=== PATIENT | male | born 1955 | race Caucasian/White ===

== ENCOUNTER → 2017-03-31 | Outpatient (CLI) | payer BC, MEDICARE | LOC: SUN.DIA 11:32 | DX: E11.9 Type 2 diabetes mellitus without complications (principal); I10 Essential (primary) hypertension; E66.9 Obesity, unspecified; Z68.38 Body mass index [BMI] 38.0-38.9, adult; Z71.3 Dietary counseling and surveillance | CPT/HCPCS: G0108 ==

== ENCOUNTER → 2019-02-22 | Outpatient (CLI) | payer MEDICARE, BC | LOC: DIA.ED 08:52 | DX: E11.9 Type 2 diabetes mellitus without complications (principal); E78.5 Hyperlipidemia, unspecified; I10 Essential (primary) hypertension; E66.9 Obesity, unspecified; Z79.4 Long term (current) use of insulin | CPT/HCPCS: G0108 ==

== ENCOUNTER → 2019-03-03 | Outpatient (CLI) | payer MEDICARE, BC | LOC: DIA.ED 13:51 | DX: E11.9 Type 2 diabetes mellitus without complications (principal); E78.5 Hyperlipidemia, unspecified; I10 Essential (primary) hypertension; E66.9 Obesity, unspecified; Z79.4 Long term (current) use of insulin | CPT/HCPCS: G0108 ==

== ENCOUNTER → 2019-03-30 | Outpatient (CLI) | payer MEDICARE, BC | LOC: DIA.ED 14:38 | DX: E11.9 Type 2 diabetes mellitus without complications (principal); E78.5 Hyperlipidemia, unspecified; I10 Essential (primary) hypertension; E66.9 Obesity, unspecified; Z79.4 Long term (current) use of insulin | CPT/HCPCS: G0108 ==

== ENCOUNTER 2019-04-05 16:37 | Inpatient (IN) | payer MEDICARE, BC ==
[2019-04-05] VITALS (53 sets, daily range): BP systolic 188–192; BP diastolic 95–118; PULSE 78–93; TEMP 98.3; O2SAT 90–97
[~2019-04-05] VITALS: Ht 165.1 cm; Wt 97.2 kg
[2019-04-05] MEDS ORDERED: CELEXA 20MG20 MG/TAB PO (17:26)
[2019-04-05] MEDS ORDERED: VOLTAREN 75 DR75 MG PO (17:27)
[2019-04-05] MEDS ORDERED: PLAVIX 75MG TAB75 MG PO (17:27)
[2019-04-05] MEDS ORDERED: LEVEMIR100 U/ML SQ (17:29)
[2019-04-05] MEDS ORDERED: PRINZIDE 25 MG-1 TAB PO (17:31)
[2019-04-05] MEDS ORDERED: GLUCOPHAGE1000 MG PO (17:32)
[2019-04-05] MEDS ORDERED: PRAVACHOL 40MG40 MG PO (17:33)
[2019-04-05 17:46] LABS: BASO % 0.3 % (0.0-2.0); EOS # 0.1 (0.0-0.7); EOS % 0.9 % (0-4.0); GRAN # 6.6 (1.4-6.5); GRAN % 72.1 % (42.2-75.2); HEMATOCRIT 45.4 % (42.0-52.0); HEMOGLOBIN 15.4 g/dl (13.5-18.0); LYMPH # 1.9 (1.2-3.4); LYMPH % 20.7 % (20.0-51.0); MEAN CELL VOLUME 83 fl (80.0-100.0); MEAN CORPUSCULAR HEMOGLOBIN 28 pg (27.0-31.0); MEAN CORPUSCULAR HGB CONC 34 g/dl (33.0-37.0); MEAN PLATELET VOLUME 11.5 fl (7.4-10.4); MONO # 0.5 (0.1-0.6); MONO % 5.6 % (1.7-9.3); PLATELET COUNT 300 K/mm3 (130-400); RED BLOOD COUNT 5.48 M/mm3 (4.20-5.60); REDCELL DISTRIBUTION WIDTH-CV 13.4 % (11.5-14.5)
[2019-04-05 17:59] LABS: ALANINE AMINOTRANSFERASE 78 U/L (21-72); ALBUMIN 4.4 gm/dL (3.5-5.0); ALKALINE PHOSPHATASE 88 U/L (50-136); ANION GAP 11 mmol/L (7-16); AST,SGOT 52 U/L (15-37); BILIRUBIN,TOTAL 0.4 mg/dL (0.0-1.0); BLOOD UREA NITROGEN 12 mg/dL (9-20); C-REACTIVE PROTEIN 0.7 mg/dL (0.0-0.9); CALCIUM 8.9 mg/dL (8.4-10.2); CARBON DIOXIDE 28 mmol/L (22-30); CHLORIDE 100 mmol/L (98-107); CREATININE, serum 0.77 (0.66-1.25); POTASSIUM 3.7 mmol/L (3.4-5.0); SODIUM 139 mmol/L (137-145); TOTAL PROTEIN 7.3 gm/dL (6.4-8.2)
[2019-04-05 18:10] LABS: GLUCOSE 423 mg/dL (74-106); TROPONIN-I < 0.012 ng/mL (0.000-0.035)
[2019-04-05 19:09] LABS: COLLECTION METHOD CLEAN CATCH
[2019-04-05 19:15] LABS: MUCOUS Present /lpf; PH 5 (5-8); SQUAMOUS EPITHELIAL None Seen /hpf; URINE APPEARANCE Clear; URINE BACTERIA None Seen /hpf; URINE BILIRUBIN Negative (NEGATIVE); URINE BLOOD 1+ (NEGATIVE); URINE COLOR Yellow; URINE GLUCOSE 3+ (NEGATIVE); URINE KETONE Trace (NEGATIVE); URINE LEUKOCYTE ESTERASE Negative (NEGATIVE); URINE NITRATE Negative (NEGATIVE); URINE PROTEIN(semi-quant) 1+ (NEGATIVE); URINE RBC 0-2 /hpf; URINE UROBILINOGEN Negative (NEGATIVE)
[2019-04-05] MEDS ORDERED: NORVASC 5MG5 MG/TAB PO (20:20)
[2019-04-06] VITALS (367 sets, daily range): BP systolic 148–178; BP diastolic 71–110; PULSE 74–87; TEMP 98.4–99; O2SAT 91–98
--- NOTE | 2019-04-06 01:28 | NUR ---
2149 - RECEIVED REPORT FROM CHARITY HATCH. 2223 - PT ARRIVED IN UNIT VIA WHEELCHAIR, ABLE TO TRANSFER SELF TO BED WITH STANDBY ASSIST. PT AMBULATED TO THE HALLWAY WELL WITH MORRIS HOLCOMB. PT DID WELL. PT ALERT AND ORIENTED X 4, ON ROOM AIR, DENIES ANY PAIN OR SOB. PT ORIENTED TO ROOM, USE OF CALL LIGHT AND HOSPITAL POLICY, PT VERBALIZED UNDERSTANDING.
--- NOTE | 2019-04-06 01:31 | NUR ---
PT'S EMERGENCY CONTACT IS HIS BROTHER OBDULIA UNDERWOOD, PT DOES NOT KNOW HIS NUMBER HE JUST CHANGED HIS PHONE. PT WILL PROVIDE NUMBER WHEN BROTHER VISITS.
[2019-04-06 05:26] LABS: BASO % 0.3 % (0.0-2.0); EOS # 0.1 (0.0-0.7); EOS % 0.8 % (0-4.0); GRAN % 67.3 % (42.2-75.2); HEMATOCRIT 43.3 % (42.0-52.0); HEMOGLOBIN 14.4 g/dl (13.5-18.0); LYMPH # 2.1 (1.2-3.4); LYMPH % 23.9 % (20.0-51.0); MEAN CELL VOLUME 84 fl (80.0-100.0); MEAN CORPUSCULAR HEMOGLOBIN 28 pg (27.0-31.0); MEAN CORPUSCULAR HGB CONC 33 g/dl (33.0-37.0); MONO # 0.7 (0.1-0.6); MONO % 7.5 % (1.7-9.3); PLATELET COUNT 278 K/mm3 (130-400); RED BLOOD COUNT 5.15 M/mm3 (4.20-5.60)
[2019-04-06 05:47] LABS: ALBUMIN 3.9 gm/dL (3.5-5.0); BILIRUBIN,TOTAL 0.4 mg/dL (0.0-1.0); CALCIUM 8.2 mg/dL (8.4-10.2); CHOLESTEROL RISK RATIO 8.4; CREATININE, serum 0.75 (0.66-1.25); POTASSIUM 3.1 mmol/L (3.4-5.0); TOTAL PROTEIN 6.7 gm/dL (6.4-8.2)
--- NOTE | 2019-04-06 07:00 | NUR ---
BEDSIDE REPORT RECEIVED FROM CHARITY CLEMONS. PATIENT SLEEPS BETWEEN DISTURBANCES. NO NEEDS VOICED AT THIS TIME. CARE TAKEN OVER
--- NOTE | 2019-04-06 10:28 | NUR ---
Initial visit; Patient thanked Lead Programmer for looking in on him and offering God's blessings.
--- NOTE | 2019-04-06 11:50 | NUR ---
PATIENT WORKS WITH PT AT THIS TIME
--- NOTE | 2019-04-06 12:00 | NUR ---
DR. BAKER IN TO SEE PATIENT AT THIS TIME
--- NOTE | 2019-04-06 15:25 | NUR ---
DOOR ATTENDANT met with the patient to discuss a discharge plan. The patient lives in [place] and reports his brother Jaime lives with him on and off. The patient has a CPAP and [facility]. The patient's PCP is Dr. Joss Infante and [place] [facility] [place]. The patient does not have advanced directives in the EMR. Patient was not interested in a DPOA-HC form but stated his brother is his emergency contact. The patient plans to return home upon discharge with his brother Jaime or patient's son providing transportation. There are no additional needs at this time.
--- NOTE | 2019-04-06 16:00 | NUR ---
PATIENT VERY IMPULSIVE THROUGHOUT THE DAY. BED ALARM AND CHAIR ALARMS IMPLEMENTED FOR HIS SAFETY. HE IS ENCOURAGED TO USE CALL LIGHT WHEN HE NEEDS ANY THING AT ALL. HE CONTINUES TO BE IMPULSIVE AND NOT USE CALL LIGHT. CHAIR ALARM GOES OFF FREQUENTLY.
--- NOTE | 2019-04-06 17:30 | NUR ---
DR. PAULA HERE TO SEE PATIENT
[2019-04-06] MEDS ORDERED: GLUCOTROL XL10 MG PO (18:02)
[2019-04-06] MEDS ORDERED: JANUVIA 100MG100 MG PO (18:03)
--- NOTE | 2019-04-06 19:30 | NUR ---
REPORT GIVEN TO CHARITY MANCILLA ON MEDICAL FLOOR. PATIENT TAKEN UP TO ROOM 355.
--- NOTE | 2019-04-06 19:45 | NUR ---
Transferred from ICU to medical bed 355 at this time- alert/pleasant, oriented to place, month/time-- does not follow directions in regards to using call light for assistance up to bathroom- bed alarm on-reminded need to call for assistance - will be NPO after MN for renal U/S tomorrow, INT to left hand
[2019-04-07 04:17] VITALS: BP 150/67; PULSE 84; TEMP 99
--- NOTE | 2019-04-07 06:00 | NUR ---
Up to bathroom with assist- states is stiff this morning, moving slow- continues to not use the call light- needs reminders, gait is somewhat unsteady, Fall Risk- bed alarm on
[2019-04-07 07:22] VITALS: BP 161/99; PULSE 85; TEMP 98.7
[2019-04-07 07:39] LABS: BASO % 0.4 % (0.0-2.0); EOS # 0.1 (0.0-0.7); EOS % 0.8 % (0-4.0); GRAN # 5.5 (1.4-6.5); GRAN % 64.4 % (42.2-75.2); HEMATOCRIT 46.8 % (42.0-52.0); HEMOGLOBIN 15.2 g/dl (13.5-18.0); LYMPH # 2.3 (1.2-3.4); LYMPH % 26.4 % (20.0-51.0); MEAN CELL VOLUME 85 fl (80.0-100.0); MEAN CORPUSCULAR HEMOGLOBIN 28 pg (27.0-31.0); MEAN CORPUSCULAR HGB CONC 33 g/dl (33.0-37.0); MEAN PLATELET VOLUME 11.5 fl (7.4-10.4); MONO # 0.7 (0.1-0.6); MONO % 7.8 % (1.7-9.3); PLATELET COUNT 303 K/mm3 (130-400); REDCELL DISTRIBUTION WIDTH-CV 14.3 % (11.5-14.5)
[2019-04-07 07:46] LABS: CALCIUM 8.9 mg/dL (8.4-10.2); CREATININE, serum 0.81 (0.66-1.25); POTASSIUM 3.4 mmol/L (3.4-5.0)
[2019-04-07 10:39] VITALS: BP 133/99; PULSE 86; TEMP 98.2
[2019-04-07 10:51] VITALS: BP 102/53; PULSE 99; TEMP 98.1
--- NOTE | 2019-04-07 11:16 | NUR ---
Pt assessment completed and charted. Pt is alert and hard to assess orientation. When asked questions, patient answers jokingly and then later states "oh do you want honest answers?" Pt appears to make quite a few jokes and inappropriate comments. Denies pain, dizziness, SOB. Walked with therapy w/ gait belt and steady gait. Pt still on fall precautions, bed alarm and chair alarm on. Pt instructed to use call light for assistance, has needed multiple reminders. States he can "get around on his own". LH INT IV flushes with no concern. Pt up to recliner after working with therapy. Sutures to chin are CDI. No other concerns voiced at this time. Call light within reach.
--- NOTE | 2019-04-07 13:19 | NUR ---
SW met with patient and family to discuss discharge recommendations. Doctor would like patient to have home health services for medication management. Patient and family are agreeable. SW provided medicare.gov resource list. Patient chose [facility]. YANI contacted Pee from [facility]. Pee reports they can provide medication management. YNAI faxed clinical info and discharge orders to [facility].
--- NOTE | 2019-04-07 13:30 | NUR ---
Pt discharge instructions discussed and reviewed with pt. All questions answered. INT IV DC'd with catheter tip intact and no complications. No other concerns voiced at this time. Pt assisted in getting ready to leave, escorted out via WC by aide.
== END 2019-04-07 13:30 | disposition home health service (06) | DRG 305 ==
LOC: COL.ER 16:37 → ICU 20:33 → MEDICAL 04-06 19:35
PROVIDERS: Emergency Medicine; Nurse Practitioner Family; Physician Assistant; ADMIT Family Medicine
PROC: 0HQ1XZZ Repair Face Skin, External Approach (ICD-10-PCS; principal; 2019-04-05)
DX: I16.0 Hypertensive urgency (principal); I10 Essential (primary) hypertension; R27.0 Ataxia, unspecified; W18.30XA Fall on same level, unspecified, initial encounter; Y92.008 Other place in unspecified non-institutional (private) residence as the place of occurrence of the external cause; E87.6 Hypokalemia; E11.65 Type 2 diabetes mellitus with hyperglycemia; S01.81XA Laceration without foreign body of other part of head, initial encounter; E66.9 Obesity, unspecified; Z68.37 Body mass index [BMI] 37.0-37.9, adult; E11.42 Type 2 diabetes mellitus with diabetic polyneuropathy; E78.5 Hyperlipidemia, unspecified; Z86.73 Personal history of transient ischemic attack (TIA), and cerebral infarction without residual deficits; Z79.02 Long term (current) use of antithrombotics/antiplatelets
CPT/HCPCS: 99223-AI; 99239; A9585; J0360; J1650; J1815; J7030

== ENCOUNTER 2019-04-15 12:08 | Emergency (ER) | payer MEDICARE, BC ==
[~2019-04-15 12:08] MED LIST: CELEXA 20MG20 MG/TAB PO; GLUCOPHAGE1000 MG PO; GLUCOTROL XL10 MG PO; JANUVIA 100MG100 MG PO; LEVEMIR100 U/ML SQ; NORVASC 5MG5 MG/TAB PO; PLAVIX 75MG TAB75 MG PO; PRAVACHOL 40MG40 MG PO; PRINZIDE 25 MG-1 TAB PO; VOLTAREN 75 DR75 MG PO
[2019-04-15 12:14] VITALS: BP 137/81; PULSE 89; TEMP 98.3
== END 2019-04-15 12:22 | disposition home or self-care (01) ==
LOC: COL.ER 12:08
DX: S01.81XD Laceration without foreign body of other part of head, subsequent encounter (principal); X58.XXXD Exposure to other specified factors, subsequent encounter; Z79.02 Long term (current) use of antithrombotics/antiplatelets; Z79.4 Long term (current) use of insulin

== ENCOUNTER → 2019-04-26 | Outpatient (CLI) | payer MEDICARE, BC | LOC: DIA.ED 04-20 09:50 | DX: E11.9 Type 2 diabetes mellitus without complications (principal); E78.5 Hyperlipidemia, unspecified; I10 Essential (primary) hypertension; E66.9 Obesity, unspecified; Z79.4 Long term (current) use of insulin ==

== ENCOUNTER → 2019-06-07 | Outpatient (CLI) | payer MEDICARE, BC | LOC: DIA.ED 11:12 | DX: E11.9 Type 2 diabetes mellitus without complications (principal); E78.5 Hyperlipidemia, unspecified; I10 Essential (primary) hypertension; E66.9 Obesity, unspecified; Z79.4 Long term (current) use of insulin ==

== ENCOUNTER → 2020-01-26 | Outpatient (CLI) | payer MEDICARE, BC | LOC: DIA.ED 09:30 | DX: E11.9 Type 2 diabetes mellitus without complications (principal); Z79.4 Long term (current) use of insulin; E66.8 Other obesity; I10 Essential (primary) hypertension; E78.5 Hyperlipidemia, unspecified | CPT/HCPCS: G0270 ==

== ENCOUNTER → 2020-04-26 | Outpatient (CLI) | payer MEDICARE, BC | LOC: DIA.ED 09:12 | DX: E11.9 Type 2 diabetes mellitus without complications (principal); Z79.4 Long term (current) use of insulin; E66.8 Other obesity; E78.5 Hyperlipidemia, unspecified; I10 Essential (primary) hypertension | CPT/HCPCS: G0270 ==

== ENCOUNTER → 2020-09-07 | Outpatient (CLI) | payer MEDICARE, BC | LOC: DIA.ED 08-23 14:36 | DX: E11.9 Type 2 diabetes mellitus without complications (principal); Z79.4 Long term (current) use of insulin; I10 Essential (primary) hypertension; E78.5 Hyperlipidemia, unspecified; E66.8 Other obesity | CPT/HCPCS: G0270 ==

== ENCOUNTER → 2021-01-03 | Outpatient (CLI) | payer MEDICARE, BC | LOC: DIA.ED 09:35 | DX: E11.9 Type 2 diabetes mellitus without complications (principal); Z79.4 Long term (current) use of insulin; E78.5 Hyperlipidemia, unspecified; I10 Essential (primary) hypertension | CPT/HCPCS: G0270 ==